=== PATIENT | male | born 1995 | race Caucasian/White ===

== ENCOUNTER 2020-09-26 11:56 | Emergency (ER) | payer BC ==
[~2020-09-26 11:56] MED LIST: ADIPEX-P37.5 M1 PO; PROZAC20 MG PO
[2020-09-26] MEDS ORDERED: FLEXERIL PO (13:24)
[2020-09-26] MEDS ORDERED: IBUPROFEN600 MG PO (13:24)
== END 2020-09-26 13:36 | disposition home or self-care (01) ==
LOC: ER1 11:56
DX: S13.4XXA Sprain of ligaments of cervical spine, initial encounter (principal); S09.90XA Unspecified injury of head, initial encounter; Z88.2 Allergy status to sulfonamides; V49.40XA Driver injured in collision with unspecified motor vehicles in traffic accident, initial encounter; Y92.410 Unspecified street and highway as the place of occurrence of the external cause
CPT/HCPCS: 71046; 72125; 99284